=== PATIENT | female | born 1970 | race African-American/Black ===

== ENCOUNTER 2017-06-09 18:20 | Emergency (ER) | payer BC, OTHER ==
[2017-06-09] MEDS ORDERED: NS 0.9% 1000 ML* 1,000 ML IV ONE (18:52)
[2017-06-09 19:29] LABS: Hematocrit 34 % (35-47); Mean Corpuscular HGB Conc 32 g/dl (31-36); Mean Corpuscular Hemoglobin 25 pg (27-31); Mean Corpuscular Volume 76 fL (80-97); Mean Platelet Volume 8 um3 (7.4-10.4); Red Blood Count 4.47 10^6/ul (4.0-5.4); Red Cell Distribution Width 17 % (10.5-15); White Blood Count 3.2 10^3/ul (3.5-10.8)
[2017-06-09 19:30] LABS: Add Diff/Slide Review? Slide Review Added; Comments Flag Yes
[2017-06-09 19:36] LABS: Urine Bacteria Absent (Absent); Urine Bilirubin Negative (Negative); Urine Glucose Negative (Negative); Urine Nitrite Negative (Negative)
[2017-06-09 19:44] LABS: ALT 8 U/L (7-52); AST 13 U/L (13-39); Albumin 3.8 g/dL (3.2-5.2); Alkaline Phosphatase 53 U/L (34-104); Anion Gap 4 mmol/L (2-11); BUN/Creatinine Ratio 21.7 (8-20); Blood Urea Nitrogen 20 mg/dL (6-24); CO2 Carbon Dioxide 28 mmol/L (22-32); Calcium 8.8 mg/dL (8.6-10.3); Chloride 109 mmol/L (101-111); EGFR African American 83.4 (>60); EGFR Non-African American 64.9 (>60); Globulin 2.6 g/dL (2-4); Glucose 101 mg/dL (70-100); Potassium 3.6 mmol/L (3.5-5.0); Sodium 141 mmol/L (133-145); Total Protein 6.4 g/dL (6.4-8.9)
--- NOTE | 2017-06-09 21:26 | RAD ---
INDICATION: Dysfunctional uterine bleeding COMPARISON: None TECHNIQUE: Longitudinal and transverse transvaginal scans of the pelvis were obtained. FINDINGS: Uterus: The uterus is enlarged. With multiple fibroids. The uterus measures 10.8 x 6.6 x 7.1 cm. There is a posterior body fibroid measuring 4.4 x 2.9 x 4.8 cm and a right fundal fibroid measuring 2.5 x 2.2 x 2.6 cm Endometrial thickness: The endometrial thickness is measured at 0.4 cm. . Free fluid: There is no significant free fluid . Ovaries: The ovaries are normal in size. The right ovary measures 2.4 x 1.1 x 1.2 cm. The left ovary measures 1.9 x 1.3 x 1.5 cm. . Doppler interrogation demonstrates flow to each ovary. Other: None IMPRESSION: FIBROID UTERUS. NORMAL ENDOMETRIAL STRIPE THICKNESS.
--- NOTE | 2017-06-09 22:12 | ED ---
GI/ HPI - HPI Summary HPI Summary: Patient presents to the ED with CC of vaginal bleeding x 2 days soaking through 4-5 pads per day. She states she has had vaginal bleeding last month but was moderate. Todays symptoms severe. She is not perimenopausal and LMP 3 weeks ago. Currently taking Depoprovera to which she started 6 months ago. She is due for her next shot Jun 13. She denies any complications with the depo. Denies urgency, frequency, or pain with urination. Denies abdominal pain or cramping. She has never been dx with fibroids or endometriosis. She denies fevers, sweats or chills. Denies weakness. She is anemic at baseline and takes iron supplements 65mg daily. She is otherwise healthy. VS stable. - History of Current Complaint Chief Complaint: EDVaginalBleeding Time Seen by Provider: 06/09/17 19:57 Stated Complaint: HEAVY BLEEDING Hx Obtained From: Patient Onset/Duration: Started Hours Ago Timing: Constant Severity: Mild Current Severity: Mild Vaginal Bleeding Description: Bright Red Number of Pads per Day: 5 Number of Pads per Hour: 1 Pain Intensity: 0 Additional Signs & Symptoms: Positive: Depo provera Aggravating Factor(s): Nothing Alleviating Factor(s): Nothing - Risk Factors GI Bleed Risk Factor(s): Negative Spontaneous AB Risk Factor(s): Negative Placental Abruption Risk Factor(s): Negative Ectopic Risk Factor(s): Maternal Age ^ 30 Ovarian Torsion Risk Factor(s): Negative - Allergy/Home Medications Allergies/Adverse Reactions: Allergies Allergy/AdvReac Type Severity Reaction Status Date / Time No Known Allergies Allergy Verified 06/09/17 19:23 PMH/Surg Hx/FS Hx/Imm Hx Previously Healthy: Yes - Immunization History Hx Pertussis Vaccination: No Immunizations Up to Date: Unable to Obtain/Confirm Infectious Disease History: No Infectious Disease History: Denies: Traveled Outside the [place] in Last 30 Days - Social History Occupation: Employed Full-time Lives: With Family Alcohol Use: None Hx Substance Use: No Substance Use Type: Reports: None Hx Tobacco Use: No Smoking Status (MU): Never Smoked Tobacco Review of Systems Constitutional: Negative Negative: Fever, Chills, Fatigue Eyes: Negative Cardiovascular: Negative Respiratory: Negative Positive: see HPI, other - vaginal bleeding Musculoskeletal: Negative Skin: Negative Neurological: Negative All Other Systems Reviewed And Are Negative: Yes Physical Exam Triage Information Reviewed: Yes Vital Signs On Initial Exam: Initial Vitals Temp Pulse Resp BP Pulse Ox 98.5 F 85 16 94/68 100 06/09/17 18:20 06/09/17 18:20 06/09/17 18:20 06/09/17 18:20 06/09/17 18:20 Vital Signs Reviewed: Yes Appearance: Positive: Well-Appearing, Well-Nourished Skin: Positive: Warm, Skin Color Reflects Adequate Perfusion Head/Face: Positive: Normal Head/Face Inspection Eyes: Positive: EOMI, FRANKIE, Conjunctiva Clear Neck: Positive: Supple, No Lymphadenopathy Respiratory/Lung Sounds: Positive: Clear to Auscultation, Breath Sounds Present Cardiovascular: Positive: RRR, Pulses are Symmetrical in both Upper and Lower Extremities Musculoskeletal: Positive: Strength/ROM Intact Neurological: Positive: Speech Normal Psychiatric: Positive: Normal AVPU Assessment: Alert Diagnostics - Vital Signs Vital Signs Temp Pulse Resp BP Pulse Ox 06/09/17 18:20 98.5 F 85 16 94/68 100 - Laboratory Lab Results: Lab Results 06/09/17 06/09/17 06/09/17 Range/Units 19:05 19:15 19:15 WBC 3.2 L (3.5-10.8) 10^3/ul RBC 4.47 (4.0-5.4) 10^6/ul Hgb 11.0 L (12.0-16.0) g/dl Hct 34 L (35-47) % MCV 76 L (80-97) fL MCH 25 L (27-31) pg MCHC 32 (31-36) g/dl RDW 17 H (10.5-15) % Plt Count 212 (150-450) 10^3/ul MPV 8 (7.4-10.4) um3 Neut % (Auto) 39.3 (38-83) % Lymph % (Auto) 44.1 (25-47) % Jerome % (Auto) 14.4 H (1-9) % Eos % (Auto) 1.1 (0-6) % Baso % (Auto) 1.1 (0-2) % Absolute Neuts (auto) 1.2 L (1.5-7.7) 10^3/ul Absolute Lymphs (auto) 1.4 (1.0-4.8) 10^3/ul Absolute Monos (auto) 0.5 (0-0.8) 10^3/ul Absolute Eos (auto) 0 (0-0.6) 10^3/ul Absolute Basos (auto) 0 (0-0.2) 10^3/ul Absolute Nucleated RBC 0.01 10^3/ul Nucleated RBC % 0.2 INR (Anticoag Therapy) 0.96 (0.89-1.11) APTT 27.0 (26.0-36.3) seconds Sodium (133-145) mmol/L Potassium (3.5-5.0) mmol/L Chloride (101-111) mmol/L Carbon Dioxide (22-32) mmol/L Anion Gap (2-11) mmol/L BUN (6-24) mg/dL Creatinine (0.51-0.95) mg/dL Est GFR ( Amer) (>60) Est GFR (Non-Af Amer) (>60) BUN/Creatinine Ratio (8-20) Glucose (70-100) mg/dL Lactic Acid (0.5-2.0) mmol/L Calcium (8.6-10.3) mg/dL Total Bilirubin (0.2-1.0) mg/dL AST (13-39) U/L ALT (7-52) U/L Alkaline Phosphatase (34-104) U/L Total Protein (6.4-8.9) g/dL Albumin (3.2-5.2) g/dL Globulin (2-4) g/dL Albumin/Globulin Ratio (1-3) Beta HCG, Quant mIU/mL Urine Color Yellow Urine Appearance Clear Urine pH 6.0 (5-9) Ur Specific [place] 1.021 (1.010-1.030) Urine Protein Negative (Negative) Urine Ketones Negative (Negative) Urine Blood 2+ H (Negative) Urine Nitrate Negative (Negative) Urine Bilirubin Negative (Negative) Urine Urobilinogen Negative (Negative) Ur Leukocyte Esterase Negative (Negative) Urine WBC (Auto) Trace(0-5/hpf) (Absent) Urine RBC (Auto) 3+(>10/hpf) H (Absent) Ur Squamous Epith Cells Present H (Absent) Urine Bacteria Absent (Absent) Urine Glucose Negative (Negative) Urine Ascorbic Acid * H (Negative) Blood Type Antibody Screen 06/09/17 06/09/17 06/09/17 Range/Units 19:15 19:15 19:15 WBC (3.5-10.8) 10^3/ul RBC (4.0-5.4) 10^6/ul Hgb (12.0-16.0) g/dl Hct (35-47) % MCV (80-97) fL MCH (27-31) pg MCHC (31-36) g/dl RDW (10.5-15) % Plt Count (150-450) 10^3/ul MPV (7.4-10.4) um3 Neut % (Auto) (38-83) % Lymph % (Auto) (25-47) % Jerome % (Auto) (1-9) % Eos % (Auto) (0-6) % Baso % (Auto) (0-2) % Absolute Neuts (auto) (1.5-7.7) 10^3/ul Absolute Lymphs (auto) (1.0-4.8) 10^3/ul Absolute Monos (auto) (0-0.8) 10^3/ul Absolute Eos (auto) (0-0.6) 10^3/ul Absolute Basos (auto) (0-0.2) 10^3/ul Absolute Nucleated RBC 10^3/ul Nucleated RBC % INR (Anticoag Therapy) (0.89-1.11) APTT (26.0-36.3) seconds Sodium 141 (133-145) mmol/L Potassium 3.6 (3.5-5.0) mmol/L Chloride 109 (101-111) mmol/L Carbon Dioxide 28 (22-32) mmol/L Anion Gap 4 (2-11) mmol/L BUN 20 (6-24) mg/dL Creatinine 0.92 (0.51-0.95) mg/dL Est GFR ( Amer) 83.4 (>60) Est GFR (Non-Af Amer) 64.9 (>60) BUN/Creatinine Ratio 21.7 H (8-20) Glucose 101 H (70-100) mg/dL Lactic Acid 1.0 (0.5-2.0) mmol/L Calcium 8.8 (8.6-10.3) mg/dL Total Bilirubin 0.20 (0.2-1.0) mg/dL AST 13 (13-39) U/L ALT 8 (7-52) U/L Alkaline Phosphatase 53 (34-104) U/L Total Protein 6.4 (6.4-8.9) g/dL Albumin 3.8 (3.2-5.2) g/dL Globulin 2.6 (2-4) g/dL Albumin/Globulin Ratio 1.5 (1-3) Beta HCG, Quant < 0.60 mIU/mL Urine Color Urine Appearance Urine pH (5-9) Ur Specific [place] (1.010-1.030) Urine Protein (Negative) Urine Ketones (Negative) Urine Blood (Negative) Urine Nitrate (Negative) Urine Bilirubin (Negative) Urine Urobilinogen (Negative) Ur Leukocyte Esterase (Negative) Urine WBC (Auto) (Absent) Urine RBC (Auto) (Absent) Ur Squamous Epith Cells (Absent) Urine Bacteria (Absent) Urine Glucose (Negative) Urine Ascorbic Acid (Negative) Blood Type O Positive Antibody Screen Negative Result Diagrams: 06/09/17 19:15 06/09/17 19:15 Lab Statement: Any lab studies that have been ordered have been reviewed, and results considered in the medical decision making process. GIGU Course/Dx - Course Course Of Treatment: Labs drawn. Noted to be slightly anemia with low H and H. This is at baseline. Transvaginal US shows fibroids. She is encouraged to follow up with her OBGYN in 2 days for possible medications and further management. Patient is OK with plan and discharge. VS stable. - Diagnoses Provider Diagnoses: Fibroids Discharge - Discharge Plan Condition: Stable Disposition: HOME Patient Education Materials: Uterine Fibroids (ED) Referrals: No Primary Care Phys,NOPCP [Primary Care Provider] - Additional Instructions: Please follow up with OBGYN within a week
[2017-06-09 22:13] VITALS: BP 113/74
== END 2017-06-09 22:12 | disposition home or self-care (01) ==
LOC: ED 18:20
DX: D21.9 Benign neoplasm of connective and other soft tissue, unspecified (principal); N93.9 Abnormal uterine and vaginal bleeding, unspecified
CPT/HCPCS: 36415; 76830; 80053; 81003; 81015; 83605; 84702; 85025; 85610; 85730; 86850; 86900; 86901; 96360; 99282